=== PATIENT | female | born 1950 | race Caucasian/White ===

== ENCOUNTER 2023-10-19 05:11 | Observation (INO) ==
--- NOTE | 2023-09-08 08:55 | PAT Medication Instructions ---
Medication Instructions Date of Service September 08, 2023 Home Medications benazepril 40 mg tablet 40 mg PO QAM cholecalciferol (vitamin D3) 125 mcg (5,000 unit) disintegrating tablet 125 mcg PO QAM diltiazem HCl 240 mg capsule,extended release 24 hr (Cartia XT) 240 mg PO BID ezetimibe 10 mg tablet 10 mg PO QAM furosemide 20 mg tablet (Lasix) 20 mg PO Q2D ibuprofen 200 mg tablet (Advil) 800 mg PO Q6H PRN Pain levothyroxine 175 mcg tablet (Synthroid) 175 mcg PO QAM linagliptin 5 mg tablet (Tradjenta) 5 mg PO QAM pantoprazole 40 mg tablet,delayed release (Protonix) 40 mg PO QAM aspirin 81 mg capsule 81 mg PO QAM vitamin B12 500 mcg-folic acid 400 mcg tablet 1 tab PO QAM ASK your surgeon for instructions ibuprofen 200 mg tablet (Advil) 800 mg PO Q6H PRN Pain ASK your prescriber and surgeon aspirin 81 mg capsule 81 mg PO QAM DO NOT take the morning of surgery benazepril 40 mg tablet 40 mg PO QAM cholecalciferol (vitamin D3) 125 mcg (5,000 unit) disintegrating tablet 125 mcg PO QAM furosemide 20 mg tablet (Lasix) 20 mg PO Q2D linagliptin 5 mg tablet (Tradjenta) 5 mg PO QAM vitamin B12 500 mcg-folic acid 400 mcg tablet 1 tab PO QAM Take morning of surgery With a small sip of water, OTHERWISE NOTHING TO EAT OR DRINK AFTER MIDNIGHT: diltiazem HCl 240 mg capsule,extended release 24 hr (Cartia XT) 240 mg PO BID ezetimibe 10 mg tablet 10 mg PO QAM levothyroxine 175 mcg tablet (Synthroid) 175 mcg PO QAM pantoprazole 40 mg tablet,delayed release (Protonix) 40 mg PO QAM Take evening before surgery diltiazem HCl 240 mg capsule,extended release 24 hr (Cartia XT) 240 mg PO BID Other Notes If you have any questions please call us at [phone] or [phone] or [phone] or [phone]
--- NOTE | 2023-09-23 09:08 | Anesthesiology Consultation ---
Date of Service September 23, 2023 Assessment & Plan (1) Encounter for pre-operative examination: - Check BSG AM DOS - Infectious disease screening: Per assessment on 09/23/23: No known recent infectious disease contacts or current infectious disease symptoms. - Outpatient joint assessment: Pt currently scheduled for inpatient pathway. If surgeon requests review for outpatient joint pathway, patient is an acceptable candidate for outpatient joint program from anesthesia standpoint pending surgeon's office assessment that patient is motivated, has good support and completes [facility] preop requirements. - Bifascicular block: Noted on preop EKG. No comparison EKGs in our system at time of review. Note sent to PCP- received PCP response (09/24/23): "Sent previous EKG from 2021 that is similar. This looks chronic for her." No further preop cardiac testing and/or evaluation recommended from PCP perspective. No cardiopulmonary limits complaints reported by patient at PAT visit 09/24/23. Chart Review Chart Review: Acceptable Risk for Surgery (pending evaluation DOS) and Patient seen in Pre Admission Testing Teaching & Discussion Pre-Anesthesia Teaching/Discussion Notes: Instructed NPO after midnight before surgery,except medications with 15 cc of water. Medication instructions provided according to the PAT guidelines. History Surgery Operation Date: 10/19/23 07:00 Proposed Procedures p Left Anterior Total Hip Arthroplasty - Jose Flood DO Height/Weight Height: 5 ft 5 in Weight: 91.3 kg Allergies Allergy/AdvReac Type Severity Reaction Status Date / Time hylan G-F 20 [From Synvisc] Allergy Severe Hives Verified 09/07/23 15:29 ciprofloxacin [From Cipro] Allergy Intermediate Tendinitis Verified 09/17/23 11:35 carbamazepine [From Tegretol] Allergy Mild Itching Verified 09/07/23 15:29 oxycodone Allergy Mild Nausea Verified 09/07/23 15:29 Medications Home Medications Medication Instructions Recorded Confirmed Last Taken benazepril 40 mg tablet 40 mg PO QAM 04/28/22 09/07/23 Unknown cholecalciferol (vitamin D3) 125 125 mcg PO QAM 04/28/22 09/07/23 Unknown mcg (5,000 unit) disintegrating tablet diltiazem HCl 240 mg 240 mg PO BID 04/28/22 09/07/23 Unknown capsule,extended release 24 hr (Cartia XT) ezetimibe 10 mg tablet 10 mg PO QAM 04/28/22 09/07/23 Unknown furosemide 20 mg tablet (Lasix) 20 mg PO Q2D 04/28/22 09/07/23 Unknown ibuprofen 200 mg tablet (Advil) 800 mg PO Q6H PRN Pain 04/28/22 09/07/23 Unknown levothyroxine 175 mcg tablet 175 mcg PO QAM 04/28/22 09/07/23 Unknown (Synthroid) linagliptin 5 mg tablet (Tradjenta) 5 mg PO QAM 04/28/22 09/07/23 Unknown pantoprazole 40 mg tablet,delayed 40 mg PO QAM 04/28/22 09/07/23 Unknown release (Protonix) aspirin 81 mg capsule 81 mg PO QAM 09/07/23 09/07/23 Unknown vitamin B12 500 mcg-folic acid 400 1 tab PO QAM 09/07/23 09/07/23 Unknown mcg tablet Past Medical History Medical History Bifascicular block Dating back to 05/2021 ECG Chronic kidney disease Per PCP records Gastroparesis N/V issues after hemicolectomy (especially with large meals) GERD (gastroesophageal reflux disease) Greater trochanteric bursitis of left hip History of COVID-19 (03/2022) "Mild" symptoms History of lacunar cerebrovascular accident (2013) Taking ASA Residual balance issues Follows with Neuro - Dr. Garza/JULIÁN Lloyd Hx of diverticulitis of colon Reason for sigmoid colon resection Hx of squamous cell carcinoma Chest region x2 Hyperlipemia Hypertension Hypothyroidism Osteoarthritis of left hip Right bundle branch block Sleep apnea Cannot tolerate device Type 2 diabetes mellitus Exercise / Class Metabolic Activity III < 4 Walking/Shop/Light housework Past Surgical History Surgical History History of bilateral knee replacement History of colon resection Sigmoid - for diverticulitis History of postoperative nausea and vomiting Required NGT after hemicolectomy History of surgery (07/2021) Parotid Mass removal - "benign" History of tonsillectomy and adenoidectomy Hx laparoscopic cholecystectomy Hx of bilateral oophorectomy Hx of bladder repair surgery (2008) Anterior repair/mesh sling "Didn't work" Hx of colonoscopy Hx of esophagogastroduodenoscopy Hx of hand surgery Trigger finger Hx of hysterectomy Hx of removal of cyst (2005) Tarlov Cyst L4-L5, L5-S1 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 Hx of shoulder surgery Right x5 Hx of sinus surgery x2 Hx of squamous cell carcinoma excision Chest region x2 Past Anesthesia History No Family Hx of Anesthesia Complications and Other (Required NGT after hemicolectomy) History of PONV No Hx of Motion Sickness and History of PONV Social History Smoking Status: Current every day smoker Smoking cigarettes per day: 1 PPD Do You Dip or Chew Tobacco: No Hx Alcohol Use: Yes alcohol intake frequency: holidays/special occasions only Hx Substance Use: No substance use type: does not use Review of Systems Patient denies chest pain, shortness of breath, fever, chills, cough, wheezing. Physical Exam Vital Signs BP 127/82 P 84 TEMP 98.4 SP02 97%RA RESP 18 Physical Full cervical extension range of motion. Full TMJ range of motion. TMD 3 finger breaths Mallampati Score 1 Dentition: upper/lower partials Lungs: clear throughout to auscultation Cardiac: regular rate and rhythm, no murmurs noted Spine: normal Carotid arteries: negative bruit Extremities: no LE edema Lab Results Anesthesia Preop Results Results Anesthesia Widget: WBC 9.79 K/ul (4.8-10.8) 09/23/23 Hgb 14.9 g/dl (12.0-16.0) 09/23/23 Hct 44.4 % (37.0-47.0) 09/23/23 Plt 277 K/uL (130-400) 09/23/23 Na 138 mmol/L (136-145) 09/23/23 K 4.4 mmol/L (3.5-5.1) 09/23/23 Cl 106 mmol/L (98-107) 09/23/23 CO2 25 mmol/L (21-32) 09/23/23 BUN 20 mg/dl (6-23) 09/23/23 Creat 1.44 mg/dl (0.6-1.2) H 09/23/23 Glucose Level 160 mg/dl (70-99(Fasting)) H 09/23/23 PT 10.5 Seconds (9.0-12.0) 09/23/23 PTT 27 Seconds (21-31) 09/23/23 INR 1.0 (0.9-1.1) 09/23/23 HA1c 7.4 % (4.5-5.6) H 09/23/23 Blood Type A Positive 09/23/23 Antibody Screen NEGATIVE 09/23/23 Testing Electrocardiogram Date: 09/23/23 NSR at 75bpm. RBBB. LAFB. *Bifascicular block* RBBB/LAFB Bifascicular block noted on comparison ECG from 05/27/2021* Chest X-Ray Date: 09/23/23 FINDINGS: PA and lateral chest radiographs are obtained. No prior studies are available for comparison at the time of dictation. The heart appears mildly enlarged noting atherosclerotic calcification of the thoracic aorta. The lungs and pleural spaces are clear. There is no pneumothorax. The skeletal structures are osteopenic. The bony thorax appears intact. Degenerative change is noted in the thoracic spine. IMPRESSION: No active disease in the chest.
[2023-10-19] MEDS: LR 500ML BOLUS, THEN 15ML/HR IV SCH (05:52)
[2023-10-19] MEDS: LR 60ML/HR IV SCH (05:53)
[2023-10-19] MEDS: FAMOTIDINE 20 MG TAB PO SCH (05:54)
[2023-10-19] MEDS: dexAMETHasone**PF** 10 MG/ML VIAL IV SCH (05:54)
[2023-10-19] MEDS: GABAPENTIN 300 MG CAP PO SCH (05:54)
[2023-10-19] MEDS: ACETAMINOPHEN 500 MG TAB PO SCH ×2 (05:54→14:45)
[2023-10-19] MEDS ORDERED: BUPIVACAINE 0.5 % 5 MG/1 ML PF 10ML VIAL ONE (06:11)
--- NOTE | 2023-10-19 06:22 | History & Physical Bridge Note ---
Date of Service October 19, 2023 History & Physical Bridge Note I have examined the patient, reviewed the History & Physical and in the interval since the performance of the History & Physical I have noted the following changes of clinical significance: no changes noted
[2023-10-19] MEDS ORDERED: ONDANSETRON INJ 2 MG/ML 2 ML VIAL IV PRN ×2 (06:35→10:16)
[2023-10-19] MEDS ORDERED: ATROPINE SULFATE 0.1 MG/ML 10ML SYR IV PRN (06:35)
[2023-10-19] MEDS ORDERED: fentaNYL citrate PF 100 MCG/2 ML VIAL IV PRN (06:35)
[2023-10-19] MEDS ORDERED: ePHEDrine sulfate 50 MG/ML AMP IV PRN (06:35)
[2023-10-19] MEDS ORDERED: fentaNYL citrate PF 100 MCG/2 ML VIAL ONE (06:41)
[2023-10-19] MEDS ORDERED: MIDAZOLAM HCL 1 MG/ML 2ML VIAL ONE (06:41)
[2023-10-19] MEDS: TRANEXAMIC ACID 1,000 MG **IV Pre-op IV SCH (06:45)
[2023-10-19] MEDS ORDERED: LIDOCAINE 2% 2 ML VIAL/AMP(20MG/ML) INFIL ONE (06:47)
[2023-10-19] MEDS ORDERED: ONDANSETRON INJ 2 MG/ML 2 ML VIAL ONE (06:47)
[2023-10-19] MEDS ORDERED: PROPOFOL IV EMULSION 10 MG/ML 20 ML VIAL IV ONE (06:48)
[2023-10-19] MEDS: ceFAZolin 2000MG 2,000 MG/15 ML SYR IV SCH ×2 (06:59→14:45)
[2023-10-19] MEDS ORDERED: ePHEDrine sulfate 50 MG/ML AMP ONE (07:30)
[2023-10-19] MEDS: ROPIV 0.5% 246mg, Ketorolac 30mg, EPINEPHrine 0.5mg in NSS INFIL SCH (07:48)
[2023-10-19] MEDS: ORTHO JOINT ANESTHETIC ONE (07:49)
[2023-10-19] MEDS: TRANEXAMIC ACID 1,000 MG **IV Intra-op IV SCH (07:51)
--- NOTE | 2023-10-19 07:59 | Operative Report ---
PG Post Operative Report Pre & Post Diagnosis Operation Date: 10/19/23 07:00 Pre-Op Diagnosis: Degenerative Joint Disease Left Hip Post-Op Diagnosis: Degenerative Joint Disease Left Hip I identified the patient and participated in the time-out.: Yes Procedure Operation Date: 10/19/23 07:00 Actual Procedures p Left Anterior Total Hip Arthroplasty(Left) - Jose Flood DO Surgeon Jose Flood DO Cell Installer Jose Zaldivar PA-C Estimated Blood Loss 200 Findings Consistent with Post-Op Diagnosis Specimens Left femoral head Description of Procedure Implants used I used a ZimmerBiomet total hip arthroplasty system with a size 5 standard Avenir Complete stem, a 50 mm G7 cup with a 25mm screw, an E1 polyethylene liner , a 36 mm ceramic head with a +3.5 neck. Jessica arrived at the hospital for the above procedure. She was seen in the preoperative holding area and the operative extremity was identified and signed. She was given a spinal anesthetic, a preoperative antibiotic, and TXA. She was then taken back to the operating room and laid on the table in the supine position. She was given basic sedation. The operative leg was secured to a Puristst leg positioner. The hip was then prepped and draped in sterile fashion. A timeout was done and the patient and the operative extremity was properly identified. An anterior approach was used. Dissection was taken down through the fascia and the tensor muscle belly was retracted laterally and the rectus was retracted medially. The circumflex vessels were identified and ligated. The capsule was then incised and tagged for later repair. The femoral neck was then cut and the femoral head was removed. The acetabulum was exposed. Time was spent doing a complete circumferential labral release. Sequential reaming of the acetabulum up to a size 49 reamer was done. Final reamings were done under fluoroscopy to ensure appropriate version. A Biomet 50 mm G7 cup was then impacted into place. A single 25 mm screw was placed. The E1 polyethylene liner was then snapped into place. Surrounding soft tissues were then injected with 100 cc of an orthopedic pain control cocktail. The proximal femur was then exposed. Sequential broaching up to a size 5 broach was done. Off that broach a size 36 head with a +3.5 neck was trialed. The hip was reduced and fluoroscopic images showed anatomic alignment of the implants in acceptable length. The broach was removed. The final size 5 standard offset Avenir Complete stem was then impacted into place. A ceramic 36 mm head with a +3.5 neck was then impacted onto the stem and the hip was reduced. Final fluoroscopic images showed anatomic alignment of the hip. The capsule was then closed with #1 Vicryl suture. A dilute betadyne lavage was then done for 3 minutes. The joint was then irrigated with normal saline solution. The fascia was closed with #1 PDS suture. Skin was closed with 2-0 Vicryl, edmundo, and a Silverlon dressing. She was then transferred to a hospital bed and taken to the post anesthesia care unit in stable condition. She tolerated the procedure well. Jose Zaldivar PA-C, was present for the entire procedure. He was critical for patient positioning, prepping, draping, retraction exposure, wound closure and application of sterile dressing. I attest to the content of the Intraoperative Record and any orders documented therein. Any exceptions are noted below.
--- NOTE | 2023-10-19 08:29 | Fluoroscopy Report ---
FL hip LT 1V CLINICAL HISTORY: LEFT ANTERIOR HIP COMPARISON STUDY: Left hip radiographs September 23, 2023. FLUOROSCOPY TIME: 15.2 seconds. Ka, r: 1.8951 mGy FLUOROSCOPIC IMAGES: 1 FINDINGS: Fluoroscopy was provided during total anterior left hip arthroplasty. Alignment is anatomic . Hardware is intact. There are no fractures. IMPRESSION: Fluoroscopy provided during total left hip arthroplasty. ACT 112: Negative or not required by law. Electronically signed by: Andreas Menendez M.D. 10/19/2023 8:27 AM
--- NOTE | 2023-10-19 09:34 | XRay Report ---
XR hip 1V LT w pelvis CLINICAL HISTORY: Postoperative evaluation. COMPARISON: Intraoperative fluoroscopic images of the left hip performed earlier today. FINDINGS: Alignment of the total left hip arthroplasty is anatomic. There is no periprosthetic fract ure or unexpected radiopaque foreign body. There are skin edmundo. IMPRESSION: Expected findings following total left hip arthroplasty. ACT 112: Negative or not required by law. Electronically signed by: Andreas Menendez M.D. 10/19/2023 9:33 AM
[2023-10-19] MEDS ORDERED: NALOXONE HCL 0.4 MG/1 ML VIAL/CARP IV PRN (10:16)
[2023-10-19] MEDS ORDERED: MAGNESIUM HYDROXIDE SUSP 30 ML UDC PO PRN (10:16)
[2023-10-19] MEDS ORDERED: bisacodyL 10 MG SUPP PR PRN (10:16)
[2023-10-19] MEDS ORDERED: METOCLOPRAMIDE HCL INJ 5 MG/ML 2 ML VIAL IV PRN (10:16)
[2023-10-19] MEDS ORDERED: oxyCODONE HCL IR 5 MG TAB (IMMEDIATE RELEASE) PO PRN (10:16)
--- NOTE | 2023-10-19 10:47 | Anesthesiology Progress Note ---
Date of Service October 19, 2023 Anesthesia Post Procedure Vital Signs Vital Signs: Temp Pulse Pulse Resp BP Pulse Ox O2 Del Method 10/19/23 10:46 97.9 F 65 16 119/70 95 Room Air 10/19/23 10:15 97.3 F L 70 16 118/65 94 Room Air 10/19/23 09:55 68 18 133/60 94 Room Air 10/19/23 09:45 71 16 124/55 L 94 Room Air 10/19/23 09:35 69 15 133/55 L 94 Room Air 10/19/23 09:25 68 16 129/52 L 94 Room Air 10/19/23 09:15 71 16 133/55 L 92 Room Air 10/19/23 09:00 97.5 F L 73 18 124/53 L 95 Room Air 10/19/23 08:50 66 18 132/62 99 Oxymask 10/19/23 08:40 66 16 129/48 L 97 Oxymask 10/19/23 08:30 64 16 125/44 L 99 Oxymask 10/19/23 08:22 97.9 F 82 16 117/50 L 97 Oxymask 10/19/23 05:36 97.7 F 96 H 16 177/81 H 95 Room Air O2 Flow Rate 10/19/23 10:46 10/19/23 10:15 10/19/23 09:55 10/19/23 09:45 10/19/23 09:35 10/19/23 09:25 10/19/23 09:15 10/19/23 09:00 10/19/23 08:50 4 10/19/23 08:40 4 10/19/23 08:30 4 10/19/23 08:22 6 10/19/23 05:36 Pain Intensity Left Hip: Pain Intensity: 4 Transfer of Care Handoff Completed per policy Notes Mental Status: alert / awake / arousable and participated in evaluation Patient Amnestic to Procedure: Yes Nausea / Vomiting: adequately controlled Pain: adequately controlled Airway Patency, RR, SpO2: stable & adequate BP & HR: stable & adequate Hydration State: stable & adequate Neuraxial Anesthesia: was administered and sensory block is resolving Anesthetic Complications: no major complications apparent and Pt Satisfied with anesthetic care
[2023-10-19] MEDS: SODIUM CHLORIDE 0.9% 1,000 ML IV SCH (10:50)
[2023-10-19] MEDS: dilTIAZem HCL 240 MG CAPCR PO SCH (11:01)
[2023-10-19] MEDS: EZETIMIBE 10 MG TAB PO SCH (11:01)
[2023-10-19] MEDS: LEVOTHYROXINE SODIUM 125 MCG TABLET PO SCH (11:02)
[2023-10-19] MEDS: DOCUSATE SODIUM 100 MG CAP PO SCH (11:50)
[2023-10-19] MEDS: MULTIVITAMIN TAB PO SCH (11:50)
[2023-10-19] MEDS: ENALAPRIL MALEATE 10 MG TAB PO SCH (11:50)
[2023-10-19] MEDS: FUROSEMIDE 20 MG TAB PO SCH (11:50)
[2023-10-19] MEDS: ASPIRIN 81 MG ECTAB PO SCH (11:50)
[2023-10-19] MEDS: KETOROLAC TROMETHAMINE 15 MG/ML VIAL IV SCH (11:51)
[2023-10-19] MEDS ORDERED: PHARMACY GLYCEMIC MGMT CONSULT PRN (14:33)
--- NOTE | 2023-10-19 15:10 | Pharmacy Report ---
Pharmacy Glycemic Short Note 2 - Date of Service October 19, 2023 - Glycemic Short BSG Results (Last 24 hours): 10/19/23 10/19/23 10/19/23 05:32 08:24 11:23 POC Glucose 143 H 177 H 229 H OUTPATIENT ANTIDIABETIC REGIMEN: * Tradjenta 5 mg po qam ASSESSMENT: * 73 year old s/p surgery, POD 0 - pharmacy consulted for glycemic management. Patient is type 2 diabetic managed on an oral agent at home. BSG >200 postop. Patient did receive IV dexamethasone preop. Currently ordered PO dexamethasone daily ongoing starting tomorrow. * Will give Lantus 30 units x 1 now (0.3 units/kg) and start novolog weight based stress of 3 dosing with overnight checks. PLAN FOR INPATIENT GLYCEMIC CONTROL: * Hold outpatient oral diabetes medications * Basal insulin * Lantus 30 units x 1 now * Bolus insulin * NovoLog per scale ACHS or Q6hrs while NPO * Goal Range: Low 110 mg/dL - High 140 mg/dL * Correction Factor: 20 mg/dL/unit * Nutritional / Prandial insulin per carb ratio of 1 unit per 6 grams CHO consumed
[2023-10-19] MEDS ORDERED: GLUCAGON FOR INJ 1 MG VIAL IM PRN (15:15)
[2023-10-19] MEDS ORDERED: GLUCOSE 40% GEL 15 GM TUBE PO PRN (15:15)
[2023-10-19] MEDS ORDERED: DEXTROSE 50% 50 ML SYRINGE IV PRN (15:15)
[2023-10-19] MEDS ORDERED: GLUCOSE 10 TAB/TUBE PO PRN (15:15)
[2023-10-19] MEDS ORDERED: CARBOHYDRATES FOR HYPOGLYCEMIA PO PRN (15:15)
[2023-10-19] MEDS: INSULIN ASPART PER UNIT CHARGE SC SCH ×2 (15:57→23:58)
[2023-10-19] MEDS: LANTUS PER UNIT CHARGE SC ONE (16:02)
[2023-10-19] MEDS: HYDROmorphone INJ 0.5 MG/0.5 ML SYR IV PRN (18:16)
[2023-10-19] MEDS: SENNA 8.6 MG TAB PO SCH (20:02)
[2023-10-19] MEDS: HYDROCODONE/ACETAMOPHEN 5/325MG TAB PO PRN (21:09)
--- NOTE | 2023-10-20 06:41 | Orthopedic Progress Note ---
Date of Service October 20, 2023 Assessment & Plan (1) Status post left hip replacement: Overall she is doing well. She is not having much pain in the left hip. She will be seen by physical therapy today for ambulation and range of motion exercises. She is on aspirin for DVT prophylaxis. She can be discharged home later today. She will follow-up with orthopedics in 2 weeks. Shantell Lopez was seen and examined at bedside this morning. Overall she is doing well. She is not having much pain in the lip. She has been up and ambulating around the hallways. She has no complaints.. Review of Systems All systems reviewed & are unremarkable except as noted in HPI & below. Physical Exam On physical examination of the left hip, the dressing is clean and dry. Her leg is out in full extension. She has active dorsiflexion plantarflexion of her left ankle.. Results & Data Results & Data Laboratory Results . Diagnostic Findings Postoperative x-rays of the left hip show the prosthesis to be in anatomic alignment without any evidence of fracture complication, or loosening.. PG Care Time/CCT Total # of Minutes Spent Total Time Spent with Patient: Total time spent is greater than 50% in coordination of care (as documented) at patient's floor/unit and/or counseling patient: Coding Level of Care Code 91325 Post Operative Follow-Up Diagnoses Status post left hip replacement Z96.642
--- NOTE | 2023-10-20 06:42 | Discharge Summary ---
Date of Service October 20, 2023 Principal Diagnosis Same as "Discharge Diagnosis" noted below under Discharge Instructions. Discharge Exam On physical examination of the left hip, the dressing is clean and dry. Her leg is out in full extension. She has active dorsiflexion plantarflexion of her left ankle.. Discharge Data Procedures Performed Operation Date: 10/19/23 07:00 Actual Procedures p Left Anterior Total Hip Arthroplasty(Left) - Jose Flood DO Ordered Studies 10/19/23 07:00 FL hip LT 1V Routine Hospital Course (1) Status post left hip replacement: On October 19, 2023 Jessica arrived at [facility] and underwent a left hip replacement without complication. She had a spinal anesthetic. Postoperatively she was started on aspirin for DVT prophylaxis and transferred to the general orthopedic floors. Her hospital course was uneventful. On postop day #1, her vital signs were stable and her pain was well-controlled. She was able to participate well with physical therapy doing ambulation and ra nge of motion exercises. She was then discharged home. She will follow-up with orthopedics in 2 weeks. PG Care Time/CCT Total # of Minutes Spent Total Time Spent with Patient: Total time spent is greater than 50% in coordination of care (as documented) at patient's floor/unit and/or counseling patient: Discharge Plan Discharge Items Patient Disposition: Home - Self-Care Reason For Visit: Degenerative Joint Disease Left Hip Discharge Diagnosis: Left hip replacement Activity: As commented below Non-emergency contact: Surgeon Call non-emergency contact if: your wound has increased redness and your wound has increased drainage Follow-up/Referrals: PCP,NO [Physician] - Diet: Regular Addtl Attending Provider Instructions: Activity and Therapy Recommendations: * If you are using [facility] then therapy will be provided at your home until they feel you have accomplished all of your goals. * If you are using [facility] then Physical Therapy will be provided until they feel you are ready to start Outpatient Physical Therapy. * If you are not using home therapy then Outpatient Physical Therapy should start about 3-5 days from your day of surgery. Therapy will last about 6-10 weeks * You were shown a series of exercises in the hospital. Do these exercises three times each day including the exercises you were shown in physical therapy. * Get up and walk several times each day.~ For the first four weeks, try not to stand or walk for more than one hour at a time. If you do stand or walk for more than one hour, you will not hurt anything, but your leg will likely swell.~~ * As you feel comfortable, you may change from the walker or crutches to a cane and~then to independent walking. Medications: * Narcotic You will likely be sent home from the hospital with a prescription for the narcotic pain medication that worked best throughout your stay. * Cefadroxil -take the antibiotic twice a day for 10 days to help prevent infection. * Aspirin Most patients will be required to take Aspirin 81mg twice a day for 6 weeks after surgery. This is obtained [id number] and a prescription is not necessary. * Other medications may be prescribed for specific circumstances. If you have any questions, please call the office at . * Resume previous home medications unless otherwise instructed TEDs/Elastic Stockings: The white elastic stockings help limit swelling and prevent blood clots from forming in your legs. The more you wear them, the more they work. Wear them for six weeks. Dressing Care: Leave the Silverlon dressing in place for 7 days. After 7 days you may remove the dressing. If the incision is not draining then you may leave the edmundo open to air. If there is a little bit of drainage or if the edmundo are getting stuck on your clothing then cover the incision with a dry dressing. The edmundo will be removed at your 2 week follow-up appointment. Showering: You may shower with the Silverlon dressing in place. Do not let the shower spray hit the dressing directly. Pat the Silverlon dressing dry. If the dressing becomes wet underneath, then simply remove the dressing. Keep the incision dry until you are 7 days out from the day of surgery. After 7 days you may remove the Silverlon dressing and shower with the edmundo exposed. Let soapy water run over the edmundo and pat them dry. Do not scrub or soak the incision. Things To Watch For: * Drainage from the incision site that occurs more than one week after your surgery. * Increased redness at the incision site. * Fever above 102 degrees Fahrenheit. * Unusual chest pain or shortness of breath. * Call [facility] at with any of the above problems Follow-Up Visit: Follow-up with Dr. Flood's PA (Jose Zaldivar) 2-3 weeks after your day of surgery. He will remove your edmundo and answer any questions. If you have any additional questions or concerns, Dr Flood is usually in the office at the same time and will be available An appointment was probably scheduled when you signed-up for surgery in the office. If you have any questions call Office Instructions: More detailed instructions as well as Frequently Asked Questions were provided i n a folder by our office when you signed-up for surgery. Please review these instructions when you get home. If you have any further questions or concerns, please feel free to call the office at [phone] Pending Studies at Discharge: No Stand-Alone Forms: My [facility] [employer], Smoking Cessation Medications and DC Order Prescriptions: New hydrocodone-acetaminophen 5-325 mg Tablet 1 tab PO Q6 PRN (Reason: pain) Qty: 30 0RF cefadroxil 500 mg capsule 500 mg PO BID 10 Days Qty: 20 0RF Continued cholecalciferol (vitamin D3) 125 mcg (5,000 unit) tablet,disintegrating 125 mcg PO QAM pantoprazole [Protonix] 40 mg tablet,delayed release (DR/EC) 40 mg PO QAM diltiazem HCl [Cartia XT] 240 mg capsule,extended release 24hr 240 mg PO BID furosemide [Lasix] 20 mg tablet 20 mg PO Q2D benazepril 40 mg tablet 40 mg PO QAM ibuprofen [Advil] 200 mg tablet 800 mg PO Q6H PRN (Reason: Pain) ezetimibe 10 mg tablet 10 mg PO QAM Tradjenta 5 mg tablet 5 mg PO QAM vitamin [id number] acid 500-400 mcg Tablet 1 tab PO QAM Rx Instructions: administer with a meal levothyroxine 125 mcg Tablet 125 mcg PO DAILY Changed aspirin 81 mg Capsule 81 mg PO BID 42 Days Qty: 0 0RF Discharge Orders: Discharge Order (Routine); Ordered 10/20/23 Ordered By: Jose Flood Admission Data Admit Date/Time: 10/19/23 08:21 Attending Provider: Jose Flood Admit Provider: Jose Flood Primary Care Provider: Marianne Larry
[2023-10-20] MEDS: dexAMETHasone 4 MG TAB PO SCH (07:30)
[2023-10-20] MEDS: HYDROCODONE/ACETAMOPHEN 5/325MG TAB PO PRN (07:31)
== END 2023-10-20 11:27 | disposition home health service (06) ==
LOC: 3E 05:11 → ASU 05:11